=== PATIENT | male | born 1955 | race Caucasian/White ===

== ENCOUNTER → 2016-09-28 | Outpatient (REF) | payer MEDICARE, MEDICAID ==
[2016-09-28 14:09] LABS: ALBUMIN 4.1 GM/DL (3.2-5.2); ALBUMIN/GLOBULIN RATIO 1.37 (1.00-1.93); ALKALINE PHOSPHATASE 53 U/L (45-117); ALT/SGPT 56 U/L (12-78); ANION GAP 7 MEQ/L (8-16); AST/SGOT 20 U/L (15-37); BILIRUBIN,TOTAL 0.2 MG/DL (0.2-1.0); BLOOD UREA NITROGEN 18 MG/DL (7-18); CALCIUM LEVEL 9.6 MG/DL (8.8-10.2); CARBON DIOXIDE LEVEL 29 MEQ/L (21-32); CHLORIDE LEVEL 104 MEQ/L (98-107); CHOLESTEROL LEVEL 184 MG/DL (<200); CREATININE FOR GFR 1.03 MG/DL (0.70-1.30); GLOMERULAR FILTRATION RATE > 60.0 (>49); GLUCOSE, FASTING 89 MG/DL (80-110); SODIUM LEVEL 140 MEQ/L (136-145); THYROXINE (T4) 11.9 UG/DL (4.5-12.0); TOTAL PROTEIN 7.1 GM/DL (6.4-8.2); TRIGLYCERIDES LEVEL 157 MG/DL (<150)
[2016-09-28 14:20] LABS: POTASSIUM SERUM 5.3 MEQ/L (3.5-5.1)
== END ==
LOC: M SFHCCLAY 12:39
PROVIDERS: ATTEND Family Medicine
DX: E78.2 Mixed hyperlipidemia (principal); E11.9 Type 2 diabetes mellitus without complications; E03.9 Hypothyroidism, unspecified

== ENCOUNTER → 2017-10-02 | Outpatient (REF) | payer MEDICARE, MEDICAID ==
[2017-10-02 12:07] LABS: TOTAL T3 98.1 NG/DL (60.0-181.0)
[2017-10-02 12:13] LABS: ALBUMIN 3.8 GM/DL (3.2-5.2); ALBUMIN/GLOBULIN RATIO 1.27 (1.00-1.93); ALKALINE PHOSPHATASE 45 U/L (45-117); ALT/SGPT 41 U/L (12-78); ANION GAP 8 MEQ/L (8-16); AST/SGOT 20 U/L (7-37); BILIRUBIN,TOTAL 0.3 MG/DL (0.2-1.0); BLOOD UREA NITROGEN 15 MG/DL (7-18); CALCIUM LEVEL 9.1 MG/DL (8.8-10.2); CARBON DIOXIDE LEVEL 29 MEQ/L (21-32); CHLORIDE LEVEL 100 MEQ/L (98-107); CHOLESTEROL LEVEL 161 MG/DL (<200); CHOLESTEROL RISK RATIO 3.425 (<5); CREATININE FOR GFR 0.86 MG/DL (0.70-1.30); GLOMERULAR FILTRATION RATE > 60.0 (>49); GLUCOSE, FASTING 90 MG/DL (70-100); HDL CHOLESTEROL 47 MG/DL (>40); LDL CHOLESTEROL 86.8 MG/DL (<100); NON-HDL-C 114 MG/DL; POTASSIUM SERUM 4.7 MEQ/L (3.5-5.1); SODIUM LEVEL 137 MEQ/L (136-145); THYROID STIMULATING HORMONE 0.846 uIU/ML (0.358-3.740); THYROXINE (T4) 11.2 UG/DL (4.5-12.0); TOTAL PROTEIN 6.8 GM/DL (6.4-8.2); TRIGLYCERIDES LEVEL 136 MG/DL (<150)
[2017-10-02 12:18] LABS: ESTIMATED AVERAGE GLUCOSE 140 MG/DL (60-110); HEMOGLOBIN A1c 6.5 %
== END ==
LOC: M SFHCCLAY 08:01
DX: E11.9 Type 2 diabetes mellitus without complications (principal); E78.2 Mixed hyperlipidemia; E03.9 Hypothyroidism, unspecified
CPT/HCPCS: 84443

== ENCOUNTER → 2017-12-11 | Outpatient (CLI) | payer MEDICARE, MEDICAID | LOC: M CLY 08:09 | DX: J18.9 Pneumonia, unspecified organism (principal) | CPT/HCPCS: 71046 ==

== ENCOUNTER → 2018-04-23 | Outpatient (REF) | payer MEDICARE, MEDICAID, OTHER ==
[2018-04-23 11:52] LABS: BASO # 0.1 10^3/uL (0.0-0.2); BASO % 1.4 % (0.0-1.0); EOS # 0.3 10^3/uL (0.0-0.50); EOS % 5.6 % (0.0-3.0); HEMATOCRIT 40.3 % (42.0-52.0); HEMOGLOBIN 13.3 g/dl (13.5-17.5); IMMATURE GRANULOCYTE % 0.4 % (0-3.0); LYMPH # 1.6 10^3/uL (1.5-4.5); LYMPH % 31.5 % (24.0-44.0); MEAN CORPUSCULAR HEMOGLOBIN 29.4 pg (27.0-33.0); MONO # 0.6 10^3/uL (0.0-0.8); MONO % 12.2 % (0.0-5.0); NEUTROPHILS # 2.5 10^3/uL (1.8-7.7); NEUTROPHILS % 48.9 % (36.0-66.0); PLATELET COUNT, AUTOMATED 298 10^3/uL (150-450); RED BLOOD COUNT 4.53 10^6/uL (4.30-6.10); RED CELL DISTRIBUTION WIDTH 14.1 % (11.5-14.5); WHITE BLOOD COUNT 5.2 10^3/uL (4.0-10.0)
[2018-04-23 12:26] LABS: ESTIMATED AVERAGE GLUCOSE 131 MG/DL (60-110); HEMOGLOBIN A1c 6.2 %
[2018-04-23 12:31] LABS: ANION GAP 6 MEQ/L (8-16); BLOOD UREA NITROGEN 17 MG/DL (7-18); CALCIUM LEVEL 9.8 MG/DL (8.8-10.2); CARBON DIOXIDE LEVEL 29 MEQ/L (21-32); CHLORIDE LEVEL 103 MEQ/L (98-107); FERRITIN 21 NG/ML (26-388); GLOMERULAR FILTRATION RATE > 60.0 (>49); GLUCOSE, FASTING 110 MG/DL (70-100); IRON (FE) 60 UG/DL (65-175); POTASSIUM SERUM 5.2 MEQ/L (3.5-5.1); SODIUM LEVEL 138 MEQ/L (136-145); TOTAL IRON BINDING CAPACITY 422 UG/DL (250-450)
[2018-04-23 15:43] LABS: PERCENT SATURATION 14.2 % (19.7-50.0)
== END ==
LOC: M SFHCCLAY 08:16
DX: E11.9 Type 2 diabetes mellitus without complications (principal); E03.9 Hypothyroidism, unspecified; D50.8 Other iron deficiency anemias
CPT/HCPCS: 83550

== ENCOUNTER → 2018-05-20 | Outpatient (REF) | payer MEDICARE, MEDICAID, OTHER | LOC: M LAB REF 18:20 | DX: L57.0 Actinic keratosis (principal) | CPT/HCPCS: 88305 ==

== ENCOUNTER → 2018-07-01 | Outpatient (CLI) | payer MEDICARE, MEDICAID | LOC: M CLY 13:29 | DX: R05 Cough (principal) | CPT/HCPCS: 71046 ==

== ENCOUNTER → 2018-12-17 | Outpatient (CLI) | payer MEDICARE, MEDICAID | LOC: M CLY 15:44 | PROVIDERS: ATTEND Family Medicine | DX: J40 Bronchitis, not specified as acute or chronic (principal); Z53.8 Procedure and treatment not carried out for other reasons ==

== ENCOUNTER → 2018-12-17 | Outpatient (CLI) | payer MEDICARE ==
--- NOTE | 2018-12-18 01:11 | REP ---
Clinical: Cough Comparison: 07/01/2018 . Technique: PA and lateral. Findings: The mediastinum and cardiac silhouette are normal. The lung yin are clear and without acute consolidation, effusion, or pneumothorax. The skeletal structures are intact and normal. Impression: 1. No acute cardiopulmonary process.
== END ==
LOC: M CLY 16:08
PROVIDERS: ATTEND Family Medicine
DX: J40 Bronchitis, not specified as acute or chronic (principal)
CPT/HCPCS: 71046; G0463

== ENCOUNTER → 2019-06-12 | Outpatient (REF) | payer MEDICARE, MEDICAID | LOC: M SFHCPLAZ 09:56 | PROVIDERS: ATTEND Dermatology | DX: D22.5 Melanocytic nevi of trunk (principal) ==

== ENCOUNTER → 2020-10-25 | Outpatient (CLI) | payer MEDICARE, MEDICAID ==
--- NOTE | 2020-10-25 14:12 | REP ---
INDICATION: PAIN IN LEFT SHOULDER. COMPARISON: None. TECHNIQUE: Axial, oblique coronal, and oblique sagittal imaging planes utilized. T1 and T2 weighted scans are included with without fat saturation. FINDINGS: The glenohumeral and acromioclavicular joints are normally aligned. Cortical and medullary bone signal intensity are normal. There is osteoarthritic hypertrophy of the AC joint and there are subcortical cysts on both sides the AC joint. There is some synovial hypertrophy at the AC joint as well. There is subacromial subdeltoid bursal fluid. There is also some glenohumeral articulation joint effusion. Subcortical cyst formation is seen in the superolateral humeral head. The subscapularis tendon shows tendinitis tendinosis change. Infraspinatus tendon is unremarkable. There is diffuse swelling and increased signal intensity in the distal supraspinatus tendon consistent with tendinosis. No full thickness cuff tear is appreciated. There is some irregularity of the superior acetabular labral cartilage consistent with fraying and/or partial tear. There is a partial tear in a a superior aspect of the posterior labral cartilage as well. No paralabral cyst is appreciated. Biceps tendon is in the bony bicipital groove no loose body is seen. 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 No traumatic change seen. Subacromial subdeltoid bursal effusion. Moderate tendinosis in the subscapularis and supraspinatus tendons. No full-thickness cuff tear seen. Posterior and superior labral cartilage fraying versus partial tear. <Electronically signed by Ced Mendiola > 10/25/20 [id number]
== END ==
LOC: M RAD 10:21
PROVIDERS: ATTEND Family Medicine
DX: M25.512 Pain in left shoulder (principal)

== ENCOUNTER → 2020-11-05 | Outpatient (CLI) | payer MEDICARE, MEDICAID ==
--- NOTE | 2020-11-05 15:57 | REP ---
INDICATION: PERSONAL HX OF NICOTINE DEPENDENCE. COMPARISON: A PA and lateral chest dated 12/17/2018. TECHNIQUE: The study is performed without IV contrast. Images are presented at lung windowing only. FINDINGS: There are no lung masses or nodules. However, there is a diffuse reticulonodular interstitial pattern throughout the entire left lung. This is nonspecific and could be acute or chronic. I also suspect bronchiectasis. No pleural effusions. IMPRESSION: Category 1 low-dose lung screening CT of the chest. The probability of malignancy is less than 1%. However, there is a diffuse reticulonodular interstitial pattern throughout the left lung. This is nonspecific and could be acute or chronic. Additionally, I suspect bronchiectasis. Pulmonary consultation might be considered for these interstitial findings in the left lung and for the bronchiectasis. <Electronically signed by Rob Herrera > 11/05/20 [id number]
== END ==
LOC: M RAD 11:00
PROVIDERS: ATTEND Physician Assistant
DX: Z12.2 Encounter for screening for malignant neoplasm of respiratory organs (principal); Z87.891 Personal history of nicotine dependence

== ENCOUNTER → 2020-12-28 | Outpatient (REF) | payer MEDICARE, MEDICAID ==
[2020-12-28 16:07] LABS: BASO # 0.1 10^3/uL (0.0-0.2); BASO % 1.1 % (0.0-1.0); EOS # 0.2 10^3/uL (0.0-0.5); EOS % 2.6 % (0.0-3.0); LYMPH # 1.5 10^3/uL (1.5-5.0); LYMPH % 16.5 % (24.0-44.0); MEAN CORPUSCULAR HGB CONC 32.5 g/dl (32.0-36.5); MEAN CORPUSCULAR VOLUME 89.3 fl (80.0-96.0); MONO # 0.9 10^3/uL (0.0-0.8); MONO % 10.2 % (2.0-8.0); NEUTROPHILS # 6.1 10^3/uL (1.5-8.5); NEUTROPHILS % 69.3 % (36.0-66.0); PLATELET COUNT, AUTOMATED 434 10^3/uL (150-450); RED BLOOD COUNT 4.48 10^6/uL (4.30-6.10); WHITE BLOOD COUNT 8.8 10^3/uL (4.0-10.0)
[2020-12-28 16:40] LABS: ALT/SGPT 20 U/L (12-78); BILIRUBIN,TOTAL 0.3 MG/DL (0.2-1.0); BLOOD UREA NITROGEN 12 MG/DL (7-18); CALCIUM LEVEL 9.9 MG/DL (8.8-10.2); CARBON DIOXIDE LEVEL 30 MEQ/L (21-32); CHLORIDE LEVEL 93 MEQ/L (98-107); CHOLESTEROL LEVEL 146 MG/DL (<200); CHOLESTEROL RISK RATIO 2.561 (<5); CREATININE FOR GFR 0.61 MG/DL (0.70-1.30); GLOMERULAR FILTRATION RATE > 60.0 (>49); GLUCOSE, FASTING 71 MG/DL (70-100); HDL CHOLESTEROL 57 MG/DL (>40); LDL CHOLESTEROL 72 MG/DL (<100); NON-HDL-C 89 MG/DL; POTASSIUM SERUM 5.3 MEQ/L (3.5-5.1); SODIUM LEVEL 128 MEQ/L (136-145); TOTAL PROTEIN 7.6 GM/DL (6.4-8.2); TRIGLYCERIDES LEVEL 84 MG/DL (<150)
[2020-12-28 18:27] LABS: HEMOGLOBIN A1c 5.5 %
== END ==
LOC: M SFHCCLAY 09:57
PROVIDERS: ATTEND Family Medicine
DX: E78.2 Mixed hyperlipidemia (principal); E11.9 Type 2 diabetes mellitus without complications; E03.9 Hypothyroidism, unspecified; I10 Essential (primary) hypertension
CPT/HCPCS: 80053; 80061; 83036; 84443; 85025; G0463

== ENCOUNTER → 2021-03-07 | Outpatient (CLI) | payer MEDICARE, MEDICAID ==
--- NOTE | 2021-03-07 11:37 | REP ---
INDICATION: OTHER NON SPECFIC FINDING, BRONCHOSTATIS. History of bronchiectasis. COMPARISON: Comparison CT study November 05, 2020.. TECHNIQUE: Helical scanning is acquired. 3 mm axial images are generated. Coronal and sagittal MPR and coronal MIP images are generated. FINDINGS: Preliminary digital residential manager radiograph is unremarkable. On axial CT images, today's study demonstrates linear fibrosis in the left lower lobe and patchy areas of peribronchovascular ground-glass opacity and interstitial prominence in the lower lobes bilaterally. There is parietal pleural thickening in the the left lower lobe. These findings are unchanged in the left lower lobe when compared with the November 05, 2020 study. However, the ground-glass opacity pattern in the right lower lobe is a new finding. There are also similar but less numerous ground-glass opacities distributed in the right upper lobe and right middle lobe. These may reflect viral or other inflammatory pneumonitis changes. No endobronchial disease is seen. There is some peribronchial thickening in the left lower lobe bronchi which are slightly prominent in size. This is unchanged. Vascular calcifications noted. There is no evidence of hilar or mediastinal adenopathy or mass. No pleural or pericardial effusion is seen. Normal adrenal glands are seen. Visualized upper abdominal structures are unremarkable. IMPRESSION: 1. Chronic pattern of interstitial disease in the left lower lobe lung base and to a lesser extent the lingula. There is some associated parietal pleural thickening in the left lower lobe. 2. Slightly different pattern of multifocal ground-glass opacities in the right lower lobe right upper lobe and right middle lobe today consistent with viral or other pneumonitis. 3. Peribronchial thickening and bronchial enlargement in the left lower lobe consistent with bronchiectasis. <Electronically signed by Ced Mendiola > 03/07/21 [id number]
== END ==
LOC: M RAD 10:01
PROVIDERS: ATTEND Physician Assistant
DX: R91.8 Other nonspecific abnormal finding of lung field (principal); J47.9 Bronchiectasis, uncomplicated

== ENCOUNTER → 2021-03-29 | Outpatient (CLI) | payer MEDICARE, MEDICAID ==
--- NOTE | 2021-03-29 11:49 | PFTRPT ---
Site: [facility], [address] [place], [address] ID: [id number] Name: SHERRY TORRE Visit Date: 03/29/2021 Second ID: [id number] Referring Doctor: MATIAS Weathers, Rozina Conde Reviewing Doctor: Michael Mars MD Sound Printer: Camryn KENDRICK RRT Age: 66 : 1955 Sex: Male Race: Height: 67.00 Inches Weight: 190.00 Lbs BSA: 1.98 Order IDs: [id number] Requested Test(s): <RESP-PFT.PFT B/A> Diagnosis: R94.2 of albuterol for post bronchodilator. Pt. had difficulty with N2 washout as he was unable to keep a tight seal on mouthpiece during entire manuever. Review Status: Not Reviewed Pre-Bronch Post-Bronch Pred Actual %Pred Actual %Chng SPIROMETRY FVC (L) 4.11 3.14 76 3.11 FEV1 (L) 3.06 2.41 78 2.41 FEV1/FVC (%) 75 77 102 78 FEF 25% (L/sec) 7.06 5.53 78 5.68 2 FEF 50% (L/sec) 4.46 2.69 60 2.78 3 FEF 75% (L/sec) 1.26 0.67 52 0.60 -9 FEF 25-75% (L/sec) 2.44 2.01 82 1.91 -5 FEF Max (L/sec) 8.15 6.59 80 6.58 FIVC (L) 3.04 3.07 FIF 50% (L/sec) 4.59 4.88 106 5.13 5 FIF Max (L/sec) 5.31 5.61 5 MVV (L/min) 124 111 89 Expiratory Time (sec) 6.34 6.69 5 Back Extrap Vol (L) 0.09 0.14 51 Time To FEFmax (sec) 0.074 0.130 74 LUNG VOLUMES SVC (L) 4.22 3.10 73 IC (L) 3.07 2.74 89 ERV (L) 1.15 0.36 31 FRC (N2) (L) 3.33 6.57 197 RV (N2) (L) 2.18 6.20 284 TLC (N2) (L) 6.40 9.30 145 RV/TLC (N2) (%) 34 67 196 Washout Time (min) 4.70 DIFFUSION DLCOunc (ml/min/mmHg) 26.00 20.22 77 DLCOcor (ml/min/mmHg) 26.00 21.70 83 DL/VA (ml/min/mmHg/L) 4.06 4.53 111 VA (L) 6.40 4.79 74 BHT (sec) 9.98 IVC (L) 2.92 TLC (SB) (L) 4.94 BLOOD GASES Hgb (gm/dL) 12.4
== END ==
LOC: M CARPUL 10:29
PROVIDERS: ATTEND Physician Assistant
DX: R94.2 Abnormal results of pulmonary function studies (principal)

== ENCOUNTER → 2021-07-04 | Outpatient (REF) | payer MEDICARE, MEDICAID ==
[2021-07-04 16:59] LABS: ALBUMIN 3.5 GM/DL (3.2-5.2); ALT/SGPT 20 U/L (12-78); BILIRUBIN,TOTAL 0.2 MG/DL (0.2-1.0); BLOOD UREA NITROGEN 12 MG/DL (7-18); CALCIUM LEVEL 10.2 MG/DL (8.8-10.2); CARBON DIOXIDE LEVEL 30 MEQ/L (21-32); CHLORIDE LEVEL 94 MEQ/L (98-107); CREATININE FOR GFR 0.63 MG/DL (0.70-1.30); GLOMERULAR FILTRATION RATE > 60.0 (>49); GLUCOSE, FASTING 66 MG/DL (70-100); POTASSIUM SERUM 5.6 MEQ/L (3.5-5.1); SODIUM LEVEL 129 MEQ/L (136-145); TOTAL PROTEIN 7.7 GM/DL (6.4-8.2)
[2021-07-04 17:07] LABS: HEMOGLOBIN A1c 5.5 %
== END ==
LOC: M SFHCCLAY 10:34
PROVIDERS: ATTEND Family Medicine
DX: E03.9 Hypothyroidism, unspecified (principal); E11.9 Type 2 diabetes mellitus without complications
CPT/HCPCS: 80053; 83036; 84443; G0463

== ENCOUNTER → 2021-08-30 | Outpatient (REF) | payer MEDICARE, MEDICAID ==
[2021-08-30 17:33] LABS: APPEARANCE, URINE CLEAR (CLEAR); BACTERIA, URINE AUTO NEGATIVE (NEGATIVE); BILIRUBIN, URINE AUTO NEGATIVE (NEGATIVE); BLOOD, URINE BLOOD NEGATIVE (NEGATIVE); COLOR, URINE STRAW (YELLOW); GLUCOSE, URINE (UA) AUTO 3+ mg/dL (NEGATIVE); KETONE, URINE AUTO NEGATIVE (NEGATIVE); LEUKOCYTE ESTERASE, URINE AUTO NEGATIVE (NEGATIVE); NITRITE, URINE AUTO NEGATIVE (NEGATIVE); PROTEIN, URINE AUTO NEGATIVE (NEGATIVE); RBC, URINE AUTO 1 /HPF (0-3); SPECIFIC GRAVITY URINE AUTO 1.007 (1.002-1.035); SQUAMOUS EPITHELIAL CELL UR AU 0 /HPF (0-6); UROBILINOGEN, URINE AUTO 0.2 mg/dL (0.0-2.0); WBC, URINE AUTO 0 /HPF (0-3)
[2021-08-30 17:44] LABS: BASO # 0.1 10^3/uL (0.0-0.2); BASO % 1.2 % (0.0-1.0); EOS # 0.6 10^3/uL (0.0-0.5); EOS % 5.8 % (0.0-3.0); HEMATOCRIT 42.5 % (42.0-52.0); HEMOGLOBIN 13.6 g/dl (13.5-17.5); LYMPH # 2.7 10^3/uL (1.5-5.0); MEAN CORPUSCULAR HEMOGLOBIN 28.2 pg (27.0-33.0); MEAN CORPUSCULAR VOLUME 88.2 fl (80.0-96.0); MONO # 1.1 10^3/uL (0.0-0.8); MONO % 9.7 % (2.0-8.0); NEUTROPHILS # 6.3 10^3/uL (1.5-8.5); PLATELET COUNT, AUTOMATED 561 10^3/uL (150-450); RED BLOOD COUNT 4.82 10^6/uL (4.30-6.10); WHITE BLOOD COUNT 10.8 10^3/uL (4.0-10.0)
[2021-08-30 17:56] LABS: CREATININE,RANDOM URINE 27.6 MG/DL; TOTAL PROTEIN,RANDOM URINE 15.1 MG/DL (0.0-12.0)
[2021-08-30 18:19] LABS: ALBUMIN 3.9 GM/DL (3.2-5.2); ALT/SGPT 19 U/L (12-78); BILIRUBIN,DIRECT 0.1 MG/DL (0.0-0.2); BILIRUBIN,TOTAL 0.2 MG/DL (0.2-1.0); BLOOD UREA NITROGEN 8 MG/DL (7-18); C REACTIVE PROTEIN QUANTITATIV 2.23 MG/DL (0.00-0.30); CALCIUM LEVEL 9.6 MG/DL (8.8-10.2); CARBON DIOXIDE LEVEL 28 MEQ/L (21-32); CHLORIDE LEVEL 94 MEQ/L (98-107); COMPLEMENT C3 151 MG/DL (90-180); COMPLEMENT C4 30 MG/DL (10-40); CREATININE FOR GFR 0.62 MG/DL (0.70-1.30); GLOMERULAR FILTRATION RATE > 60.0 (>49); GLUCOSE, FASTING 56 MG/DL (70-100); POTASSIUM SERUM 3.9 MEQ/L (3.5-5.1); SODIUM LEVEL 130 MEQ/L (136-145); TOTAL PROTEIN 8.2 GM/DL (6.4-8.2)
[2021-08-30 19:42] LABS: ERYTHROCYTE SEDIMENTATION RATE 43 mm/hr (0-20)
[2021-09-01 09:35] LABS: DRVV SCREEN 53.6 SEC
[2021-09-01 09:36] LABS: PTT LUPUS TYPE ANTICOAG SCREEN 1.4 (0-1.2)
[2021-09-01 09:49] LABS: DRVV CONFIRM 45.6 SEC; LUPUS CONFIRM RATIO 1.2
[2021-09-01 09:53] LABS: NORMALIZED RATIO 1.17 (0.00-1.20)
[2021-09-02 07:43] LABS: ALBUMIN % 48.8 % (55.8-66.1); ALPHA-1-GLOBULIN % 6.8 % (2.9-4.9); ALPHA-1-GLOBULINS 0.56 GM/DL (0.17-0.41); ALPHA-2-GLOBULINS 1.34 GM/DL (0.42-0.99); ALPHA-2-GLOBULINS % 16.4 % (7.1-11.8); BETA-1-GLOBULINS 0.48 GM/DL (0.28-0.60); BETA-1-GLOBULINS % 5.9 % (4.7-7.2); BETA-2-GLOBULINS 0.46 GM/DL (0.19-0.55); BETA-2-GLOBULINS % 5.6 % (3.2-6.5); GAMMA GLOBULIN % 16.5 % (11.1-18.8); GAMMA GLOBULINS 1.35 GM/DL (0.65-1.58)
[2021-09-10 16:08] LABS: ALDOLASE 3.2 U/L (3.3-10.3); ANTI-GLOMERULAR BASEMENT MEMB 11 units (0-20); COMPLEMENT TOTAL (CH50) > 60 U/mL (>41); HSV IgM TYPES 1&2 <0.91 Ratio (0.00-0.90); Mi-2 ANTIBODIES Negative (Negative)
== END ==
LOC: M SFHCRHEU 14:14
PROVIDERS: ATTEND Internal Medicine
DX: R76.8 Other specified abnormal immunological findings in serum (principal); M25.40 Effusion, unspecified joint; J34.0 Abscess, furuncle and carbuncle of nose; J84.9 Interstitial pulmonary disease, unspecified

== ENCOUNTER → 2021-09-01 | Outpatient (CLI) | payer MEDICARE, MEDICAID | LOC: M RAD 07:28 | PROVIDERS: ATTEND Physician Assistant | DX: R91.8 Other nonspecific abnormal finding of lung field (principal) ==